=== PATIENT | female | born 1995 | race Caucasian/White ===

== ENCOUNTER 2018-02-27 22:34 | Emergency (ER) | payer OTHER, SELFPAY ==
[2018-02-27 22:40] VITALS: BP 140/90; PULSE 70; RESP 16; TEMP 36.7; O2SAT 100; BMI 25.6
--- NOTE | 2018-02-27 23:58 | ED.GENADULT ---
HPI - General Adult General Chief complaint: Nasal Problem Stated complaint: YELLOW LIQUID COMING FROM NOSE Time Seen by Provider: 02/27/18 22:58 Source: patient Mode of arrival: ambulatory Limitations: no limitations History of Present Illness HPI narrative: Otherwise healthy 22-year-old female here for evaluation of clear drainage from her nose. Patient states that 2 to day when she bent over she had a clear, thick drainage come from her nose. She states that it was not blood. Denies any trauma. States she does have a headache but this is not new and she has daily headaches. No fevers. Had her tonsils and adenoids out 2 years ago but no other recent surgeries. No vision changes. No sore throat. States she does not feel like she has any nasal congestion. Related Data Allergies Allergy/AdvReac Type Severity Reaction Status Date / Time No Known Drug Allergies Allergy Verified 02/27/18 22:47 Review of Systems Constitutional Denies chills, Denies fever(s), Reports headache(s), Denies lethargy and Denies weakness Eyes Denies change in vision, Denies eye discharge, Denies irritation and Denies loss of vision ENT Ears, Nose, Mouth, and Throat: Denies vertigo, Denies dry mouth, Reports headache(s), Denies mouth pain, Denies nasal congestion, Reports nasal discharge, Denies nasal trauma, Denies nose pain, Reports post nasal drip, Denies tinnitus, Denies sinus pain, Denies sinus pressure, Denies sore throat and Denies throat swelling Cardiovascular Denies chest pain and Denies dyspnea Respiratory Denies cough and Denies dyspnea Gastrointestinal Gastrointestinal: Denies abdominal pain, Denies diarrhea, Denies nausea and Denies vomiting Integumentary/Breasts Denies pruritus, Denies erythema, Denies rash and Denies wounds Neurologic Denies vertigo, Reports headache(s), Denies loss of vision and Denies weakness Hematologic/Lymphatic Denies easy bruising Allergic/Immunologic Denies throat swelling [facility] Social History Smoking Status: Never smoker Exam Initial Vital Signs Initial Vital Signs: Vital Signs Temperature 98.1 F 02/27/18 22:40 Pulse Rate 70 02/27/18 22:40 Respiratory Rate 16 02/27/18 22:40 Blood Pressure 140/90 H 02/27/18 22:40 Pulse Oximetry 100 06/12/18 22:40 Const General: cooperative and well developed Nutritional Appearance: well nourished Orientation: alert, awake, oriented x3 and not confused [place] Head: normal to inspection, normocephalic and atraumatic Ears: TM's normal bilaterally Nose: external nose normal, nares normal, nasal mucous membranes and turbinates normal, septum normal, No epistaxis, No nasal discharge and TMJ nontender Face and sinus: normal facial exam, sinuses nontender and face symmetric Mouth: oral mucosae normal and tongue normal Teeth and gingiva: dentition normal Throat: posterior oropharynx normal Eyes Pupils: PERRL EOM: EOM intact bilaterally Neck Neck: normal visual inspection Lymphatic: No lymphadenopathy Resp Effort & Inspection: normal respiratory effort and no cough Skin General: no rashes or lesions noted, No jaundice and No petechiae Neuro General: alert, awake and oriented x3 Cognition: normal cognition Speech: speech normal Motor: muscle tone normal throughout Sensory Exam: no sensory deficits noted Extrem General: normal to inspection and full ROM Course Vital Signs - 8 hr 02/27/18 22:40 02/28/18 00:10 Temperature 98.1 F 98.2 F Pulse Rate 70 72 Respiratory Rate 16 16 Blood Pressure 140/90 H 135/80 H Pulse Oximetry 100 100 Medical Decision Making [facility] Narrative Medical decision making narrative: 22-year-old female with 2 episodes of nasal drainage today when she bent over. Is not complaining of any nasal congestion. She does state that she felt like there was something running down her throat at that time. Does not have any fevers. Has her normal headache. Consider diagnosis such as CSF leak however patient denies any fevers, change in her headache, trauma, recent surgeries. it would be unlikely she has developed a CSF leak without 1 of these in her history. She was unable to reproduce nasal drainage here in the emergency department. I suspect that which she felt was sinus drainage. We did discuss the use of decongestants such as Claritin, Helen, Zyrtec, we did discuss return precautions. She expressed understanding and agreement with plan Discharge Plan Departure Patient Disposition: Home, Self-Care Clinical Impression: Rhinorrhea Discharge Date/Time: 02/28/18 00:11 Interventions: ED Discharge Assessment Last Done: 02/28/18 00:10 Instructions: DI for Nasal Congestion Activity Restrictions/Additional Instructions: recommend that you take a decongestant such as Claritin /Helen/ Zyrtec likely discussed. I highly recommend that you may contact with the primary doctor in the area. Return to the emergency department for any new or worsening symptoms
[2018-02-28 00:10] VITALS: BP 135/80; PULSE 72; RESP 16; TEMP 36.8; O2SAT 100
== END 2018-02-28 00:11 | disposition home or self-care (01) ==
PROVIDERS: Emergency Provider Emergency Medicine
DX: J34.89 Other specified disorders of nose and nasal sinuses (principal)
CPT/HCPCS: 99282